=== PATIENT | female | born 1955 | race Caucasian/White ===

== ENCOUNTER 2025-07-19 20:06 | Inpatient (IN) | payer MEDICARE, SELFPAY ==
[2025-07-19] VITALS (11 sets, daily range): BP systolic 138–175; BP diastolic 67–82; PULSE 77–89; RESP 16–27; TEMP 36.6; O2SAT 91–97; BMI 38.2
--- NOTE | 2025-07-19 20:12 | ED.ABDPAIN ---
HPI - Abdominal Pain General Chief Complaint: Abdominal Pain Stated Complaint: Poss diverticulitis flare up, pain and vomiting Time Seen by Provider: 07/19/25 20:12 History of Present Illness HPI narrative: 69-year-old female patient with a history of hypothyroidism and previous diverticulitis who complains of worsening left lower quadrant pain over 3 days with no fever or chills. No diarrhea or constipation. She had 1 episode of nausea and vomiting on the way to the hospital. Appetite is down. This feels like symptoms she had before with diverticulitis. Related Data Allergies Allergy/AdvReac Type Severity Reaction Status Date / Time No Known Drug Allergies Allergy Verified 07/19/25 20:12 Review of Systems Review of Systems ROS Unobtainable: All systems reviewed & are unremarkable except as noted in HPI and below Gastrointestinal Gastrointestinal: Reports as per HPI Patient History Social History Smoking Status: Never smoker Exam Narrative Exam Narrative: General: Alert and conversant. ibll-ik-cexyojco distress. Appears well nourished and well hydrated Lungs: Clear to auscultation with good air movement. No wheezing, rales or rhonchi. No respiratory distress Cardiac: Regular rate and rhythm with no appreciable murmur or gallop Abdomen: Soft, . Kdjy-as-dteemike left lower quadrant tenderness with no rebound or guarding. with no distention or masses. Normal bowel sounds. Musculoskeletal: Exam of the extremities, axial spine and ribcage reveals no deformity, bony tenderness or swelling. Range of motion intact Neuro: Alert and oriented. Cranial nerves, motor, sensory and cerebellar all grossly intact. No focal deficit Skin: Warm and normal color. No rashes Psychological: Normal affect and interaction. No evidence of delusion or psychosis. Normal mood. Initial Vital Signs Initial Vital Signs: Vital Signs Temperature 97.9 F 07/19/25 20:10 Pulse Rate 89 07/19/25 20:10 Respiratory Rate 17 07/19/25 20:10 Blood Pressure 175/82 H 07/19/25 20:10 Pulse Oximetry 95 07/19/25 20:10 Oxygen Delivery Method Room Air 07/19/25 20:10 Course Orders Ordered: ED Orders 07/19/25 20:23 Complete Blood Count AUTO DIFF Stat Comprehensive Metabolic Panel Stat Lipase Stat 07/19/25 21:46 CT abdomen pelvis w con Stat 07/20/25 06:00 Basic Metabolic Panel DAILY Complete Blood Count AUTO DIFF DAILY Acetaminophen (Acetaminophen 325 Mg Tablet) 650 mg PO Q6H PRN PRN Reason: Fever/Mild Pain (1-3) Hydrocodone Bitart/Acetaminophen (Hydrocodone/Acet 5/325 Tablet) 1 tab PO Q4H PRN PRN Reason: Pain, Moderate (4-6) Heparin Sodium (Porcine) (Heparin 5,000 Unit/Ml Vial) 5,000 unit SUBCUT BID HAKEEM Sodium Chloride (Normal Saline 0.45%) 1,000 mls @ 100 mls/hr IV CONT HAKEEM Piperacillin Sod/Tazobactam (Sod 3.375 gm/ Sodium Chloride) 100 mls @ 25 mls/hr IV Q8H HAKEEM Morphine Sulfate (Morphine 4 Mg/Ml Inj) 3 mg IV Q2HR PRN PRN Reason: Pain, Severe (7-10) Naloxone HCl (Naloxone 0.4 Mg/Ml Vial) 0.2 mg IV Q2MIN PRN PRN Reason: Opiate Reversal Ondansetron HCl (Ondansetron 4 Mg/2 Ml Inj) 4 mg IV Q8HR PRN PRN Reason: Nausea And Vomiting Discontinued Medications Metronidazole (Flagyl) 500 mg in 100 mls @ 100 mls/hr IV NOW ONE Stop: 07/20/25 00:15 Last Admin: 07/20/25 00:16 Dose: 100 mls/hr Documented By: JOSE Ceftriaxone Sodium 2,000 mg/ (Sodium Chloride) 100 mls @ 200 mls/hr IV NOW ONE Stop: 07/19/25 23:17 Last Infusion: 07/20/25 00:38 Dose: Infused Documented By: Admin: 07/19/25 23:50 Dose: 200 mls/hr Documented By: CASSIE Piperacillin Sod/Tazobactam (Sod 3.375 gm/ Sodium Chloride) 100 mls @ 25 mls/hr IV Q8H [facility] Last Admin: 07/20/25 00:37 Dose: Not Given Documented By: CASSIE Piperacillin Sod/Tazobactam (Sod 3.375 gm/ Sodium Chloride) 100 mls @ 200 mls/hr IV NOW ONE Stop: 07/20/25 00:14 Morphine Sulfate (Morphine 4 Mg/Ml Inj) 4 mg IV NOW ONE Stop: 07/19/25 20:24 Last Admin: 07/19/25 20:32 Dose: 4 mg Documented By: ROSCOE Ondansetron HCl (Ondansetron 4 Mg/2 Ml Inj) 4 mg IV NOW ONE Stop: 07/19/25 20:24 Last Admin: 07/19/25 20:32 Dose: 4 mg Documented By: All Vital Signs Vital signs: Vital Signs - 8 hr 07/19/25 20:10 07/19/25 20:22 07/19/25 20:24 Temperature 97.9 F Pulse Rate 89 86 82 Respiratory Rate 17 20 18 Blood Pressure 175/82 H Pulse Oximetry 95 95 Oxygen Delivery Method Room Air 07/19/25 20:24 07/19/25 20:30 07/19/25 20:30 Temperature Pulse Rate 80 Respiratory Rate 16 Blood Pressure 139/70 143/69 H Pulse Oximetry 95 Oxygen Delivery Method Room Air 07/19/25 21:00 07/19/25 21:00 Temperature Pulse Rate 79 Respiratory Rate 27 H Blood Pressure 158/79 H Pulse Oximetry 93 Oxygen Delivery Method MDM - Abdominal Pain Lab Data Attestation: I reviewed the patient's lab results. Lab results narrative: WBCs 12.5 with H and H stable. CMP unremarkable 07/19/25 20:23 07/19/25 20:23 Labs: Lab Results 07/19/25 07/19/25 Range/Units 20:23 23:43 WBC 12.5 H (4.5-11.0) X10^3/uL RBC 4.98 (4.0-5.2) X10^6/uL Hgb 15.2 (12.0-16.0) g/dL Hct 45.0 (36-46) % MCV 90.3 (80-100) fL MCH 30.5 (26-34) PG MCHC 33.8 (30-36) % RDW 13.9 (11.6-14.8) % Plt Count 310 (150-400) X10^3/uL Neut % (Auto) 86.9 H (50-75) % Lymph % (Auto) 7.4 L (25-40) % [place] % (Auto) 4.8 (3-14) % Eos % (Auto) 0.2 L (2-4) % Baso % (Auto) 0.7 (0-2) % Neut # (Auto) 51233 H (1975-2701) /uL Lymph # (Auto) 900 L (4177-8149) /uL [place] # (Auto) 600 (0-900) /uL Eos # (Auto) 0 (0-450) /uL Baso # (Auto) 100 (0-100) /uL Sodium 138 (137-145) mmol/L Potassium 3.7 (3.4-5.1) mmol/L Chloride 103 (98-107) mmol/L Carbon Dioxide 26 (22-32) mmol/L BUN 13 (7-17) mg/dL Creatinine 0.53 (0.52-1.04) mg/dL Estimated GFR > 60 (>60) mL/min BUN/Creatinine Ratio 24.5 H (6-22) Glucose 132 H (70-99) mg/dL Calcium 8.8 (8.4-10.2) mg/dL Total Bilirubin 1.0 (0.2-1.3) mg/dL AST 25 (14-36) IU/L ALT 31 (<35) IU/L Alkaline Phosphatase 66 (38-126) U/L Total Protein 8.0 (6.3-8.2) g/dL Albumin 4.6 (3.5-5.0) g/dL Globulin 3.4 (1.7-4.1) g/dL Albumin/Globulin Ratio 1.4 (1.0-2.8) Lipase 53 (23-300) U/L Urine RBC None seen (0-5/HPF) Urine WBC None seen (0-5/HPF) Ur Squamous Epith Cells 0-1 /hpf (0-5/HPF) Urine Bacteria None seen (None) Ur Culture Indicated? Cult not indicated Vol Urine Centrifuged 10ml (spun) Imaging Data CT scan - abdomen/pelvis: Radiologist's Impression: IMPRESSION: Acute diverticulitis with findings concerning for possible microperforation in the left lower quadrant with surrounding fat edema. No organized, drainable abscess. [facility] Narrative Medical decision making narrative: CT scan reveals diverticulitis with findings concerning for microperforation. IV antibiotics started with ceftriaxone and metronidazole. We will discuss with hospitalist and possibly surgeon for admission. 23:30 I discussed the patient's care with Dr. Cervantes, hospitalist who agrees to admit her for diverticulitis with microperforation. He asked that I inform the covering general surgeon. Patient has recurrence of diverticulitis but now has microperforation requiring IV antibiotics and inpatient monitoring. Otherwise she is doing well and has improved with IV fluids and pain medication. Antibiotic started as above. 23:35 I discussed the patient's care with Dr. Waterman, general surgery who will consult on the patient in the morning Discharge Plan Departure Patient Disposition: Admitted As Inpatient Clinical Impression: Diverticulitis, Bowel perforation Admit Date/Time: 07/19/25 23:44 Admit Provider: Manny Cervantes
[2025-07-19 20:32] LABS: Add Manual Diff / Slide Review NO; Hematocrit 45.0 % (36-46); Hemoglobin 15.2 g/dL (12.0-16.0); Lymphocytes Absolute Auto 900 /uL (1100-4500); Mean Corpuscular HGB Conc 33.8 % (30-36); Mean Corpuscular Hemoglobin 30.5 PG (26-34); Mean Corpuscular Volume 90.3 fL (80-100); Platelet Count 310 X10^3/uL (150-400)
[2025-07-19] MEDS: ONDANSETRON 4 MG/2 ML INJ IV (20:32)
[2025-07-19] MEDS: MORPHINE 4 MG/ML INJ IV (20:32)
[2025-07-19 20:43] LABS: Alanine Aminotransferase 31 IU/L (<35); Albumin 4.6 g/dL (3.5-5.0); Albumin Globulin Ratio 1.4 (1.0-2.8); Alkaline Phosphatase 66 U/L (38-126); Blood Urea Nitrogen 13 mg/dL (7-17); Calcium 8.8 mg/dL (8.4-10.2); Carbon Dioxide 26 mmol/L (22-32); Chloride 103 mmol/L (98-107); Estimated Glomerular Filt Rate > 60 mL/min (>60); Globulin 3.4 g/dL (1.7-4.1); Glucose 132 mg/dL (70-99); HEMOLYSIS < 15 (0-50); Lipase 53 U/L (23-300); Potassium 3.7 mmol/L (3.4-5.1); Sodium 138 mmol/L (137-145); Total Protein 8.0 g/dL (6.3-8.2)
--- NOTE | 2025-07-19 21:46 | DI.CT.S_ITS ---
PROCEDURE: CT ABDOMEN PELVIS W CON INDICATIONS: left lower quadrant pain with leukocytosis. Rule out perfo TECHNIQUE: After the administration of intravenous contrast, axial sections acquired from the lung bases to the pubic symphysis. Coronal and sagittal reformats were performed. For radiation dose reduction, the following was used: automated exposure control, adjustment of mA and/or kV according to patient size. COMPARISON: None. FINDINGS: Image quality: Diagnostic. Lower Chest: Small hiatal hernia. ABDOMEN: Liver: Hepatic steatosis. No solid mass. Gallbladder: Post cholecystectomy. Biliary ducts: No biliary dilation. Pancreas: No ductal dilation. Spleen: Size is within normal limits. Adrenal Glands: No adrenal nodules. Kidneys and Ureters: No hydronephrosis. No solid mass. No complex renal cystic lesion which requires follow up. Small left peripelvic cysts. Stomach and Bowel and peritoneum: Diverticulosis coli with pericolonic inflammation in the inferior left pericolic gutter and left pelvic inlet with non organized adjacent fat stranding and complex attenuating fluid. No peripherally enhancing abscess. No free air. Ventral Wall: No significant ventral hernia. Small fat containing periumbilical hernia. Abdominal Nodes: No retroperitoneal or mesenteric adenopathy by size criteria. Vessels: Aorta and inferior vena cava are normal in size. PELVIS: Pelvic Organs: Unremarkable. Bladder: No bladder wall thickening, accounting for underdistention. Pelvic Nodes: No enlarged lymph nodes. Miscellaneous: No inguinal hernias are seen. Bones: No aggressive osseous abnormality. Severe degenerative disc disease at L4-5 and L5-S1. IMPRESSION: Acute diverticulitis with findings concerning for possible microperforation in the left lower quadrant with surrounding fat edema. No organized, drainable abscess. Dictated by: Arvin Ann M.D. on 07/19/2025 at 22:15 Approved by: Arvin Ann M.D. on 07/19/2025 at 22:19
[2025-07-19] MEDS: cefTRIAXone 2,000 MG in SODIUM CHLORIDE 0.9% 100 ML 200 MG IV (23:50)
[2025-07-20] VITALS: BP 147/73; PULSE 90; RESP 20; O2SAT 94
[2025-07-20] MEDS: metroNIDAZOLE 500 MG/100 ML PIGGYBACK 100 MG IV ×3 (00:16→20:11)
[2025-07-20 00:22] LABS: Culture Indicated Urine Cult Not Indicated
[2025-07-20 00:30] VITALS: BP 132/64; PULSE 88; RESP 24; O2SAT 91
[2025-07-20 00:33] VITALS: BMI 38.2
[2025-07-20] MEDS: SODIUM CHLORIDE 0.45% 1,000 ML 100 ML IV ×2 (01:28→12:54)
[2025-07-20 01:29] VITALS: BP 122/67; PULSE 89; RESP 18; TEMP 36.7; O2SAT 94
[2025-07-20] MEDS: PIPERACILLIN/TAZO 4.5 GM in SODIUM CHLORIDE 0.9% 100 ML IV (02:25)
[2025-07-20] MEDS: MORPHINE 4 MG/ML INJ 3 MG IV (02:30)
[2025-07-20] MEDS: PIPERACILLIN/TAZO 3.375 GM in SODIUM CHLORIDE 0.9% 100 ML IV (05:36)
[2025-07-20 05:45] LABS: Add Manual Diff / Slide Review NO; Hematocrit 38.9 % (36-46); Hemoglobin 13.3 g/dL (12.0-16.0); Lymphocytes Absolute Auto 1300 /uL (1100-4500); Mean Corpuscular HGB Conc 34.1 % (30-36); Mean Corpuscular Hemoglobin 30.7 PG (26-34); Mean Corpuscular Volume 90.0 fL (80-100); Platelet Count 252 X10^3/uL (150-400)
[2025-07-20 06:03] LABS: Blood Urea Nitrogen 11 mg/dL (7-17); Calcium 7.9 mg/dL (8.4-10.2); Carbon Dioxide 26 mmol/L (22-32); Chloride 104 mmol/L (98-107); Estimated Glomerular Filt Rate > 60 mL/min (>60); Glucose 103 mg/dL (70-99); HEMOLYSIS < 15 (0-50); Potassium 3.4 mmol/L (3.4-5.1); Sodium 136 mmol/L (137-145)
--- NOTE | 2025-07-20 06:14 | PM.HP.1 ---
History of Present Illness History of Present Illness Date Patient Seen: 07/20/25 Time Patient Seen: 00:12 Chief complaint: Poss diverticulitis flare up, pain and vomiting Narrative: 69-year-old female with past medical history of hypothyroidism and previous diverticulitis presents with left lower quadrant abdominal pain. Per the patient report, over the last 3 days, the patient started to have increasing sharp and lower quadrant pain. The patient however denies any diarrhea, fever, chills constipation, GI bleed or chest pain. The patient does admit to have some mild nausea and vomiting today. Due to pain and nausea patient appetite has been decreased. In the emergency room, the patient was hemodynamically stable. Lab shows WBC of [address] abdomen showing signs of diverticulitis with microperforation. General surgeon was consulted and IV ceftriaxone and metronidazole given. IV fluid also given with pain medication. [facility] Social History household members: spouse Smoking Status: Never smoker Meds Home Medications and Allergies Home Medications ?Medication ?Instructions ?Recorded ?Confirmed ?Type bupropion HCl 300 mg 24 hr tablet, 300 mg PO DAILY 07/20/25 07/20/25 History extended release estradiol 0.5 mg tablet 0.5 mg PO .every other day 07/20/25 07/20/25 History fluoxetine 10 mg capsule 10 mg PO DAILY 07/20/25 07/20/25 History levothyroxine 112 mcg tablet 112 mcg PO DAILY 07/20/25 07/20/25 History liothyronine 5 mcg tablet 5 mcg PO DAILY 07/20/25 07/20/25 History omeprazole 20 mg capsule,delayed 20 mg PO BID 07/20/25 07/20/25 History release Allergies Allergy/AdvReac Type Severity Reaction Status Date / Time No Known Drug Allergies Allergy Verified 07/19/25 20:12 Exam Vital Signs (past 8 hours): - 07/19/25 22:30 07/19/25 22:30 07/19/25 23:00 Temperature Pulse Rate 79 Respiratory Rate 20 Blood Pressure 151/74 H 148/74 H Pulse Oximetry 94 Oxygen Delivery Method Oxygen Flow Rate 07/19/25 23:00 07/19/25 23:30 07/19/25 23:30 Temperature Pulse Rate 77 82 Respiratory Rate 27 H 26 H Blood Pressure 139/67 Pulse Oximetry 92 93 Oxygen Delivery Method Oxygen Flow Rate 07/19/25 23:48 07/19/25 23:48 07/20/25 00:00 Temperature Pulse Rate 89 90 Respiratory Rate 22 20 Blood Pressure 143/82 H Pulse Oximetry 95 94 Oxygen Delivery Method Oxygen Flow Rate 07/20/25 00:00 07/20/25 00:30 07/20/25 00:30 Temperature Pulse Rate 88 Respiratory Rate 24 Blood Pressure 147/73 H 132/64 Pulse Oximetry 91 Oxygen Delivery Method Oxygen Flow Rate 07/20/25 00:33 07/20/25 01:29 Temperature 98.0 F Pulse Rate 89 Respiratory Rate 18 Blood Pressure 122/67 Pulse Oximetry 94 Oxygen Delivery Method Room Air Oxygen Flow Rate 0 Oxygen Delivery Method Room Air Oxygen Flow Rate 0 Narrative Exam Narrative: Physical Exam: GENERAL: The patient is not in any acute distressed. Awake and alert. HEENT: Nonicteric sclerae, PERRLA, EOMI. Oropharynx clear. Moist mucous membranes. Conjunctivae appear well perfused. HEART: Regular rate and rhythm without murmurs. No lower extremities edema. LUNGS: Clear to auscultation bilaterally. No wheezing, crackles or rhonchi ABDOMEN: RLQ abdominal tenderess without rebound Soft, positive bowel sounds, SKIN: No rash, no excessive bruising, petechiae, or purpura. NEUROLOGIC: AxO x 3. Cranial nerves II-XII intact without motor/sensory deficit. Objective Labs 07/20/25 05:10 07/20/25 05:10 Labs: Laboratory Results - last 24 hr 07/19/25 07/19/25 07/20/25 20:23 23:43 05:10 WBC 12.5 H 6.6 RBC 4.98 4.32 Hgb 15.2 13.3 Hct 45.0 38.9 MCV 90.3 90.0 MCH 30.5 30.7 MCHC 33.8 34.1 RDW 13.9 13.8 Plt Count 310 252 Neut % (Auto) 86.9 H 71.8 Lymph % (Auto) 7.4 L 19.6 L [place] % (Auto) 4.8 7.4 Eos % (Auto) 0.2 L 1.0 L Baso % (Auto) 0.7 0.2 Neut # (Auto) 25917 H 4800 Lymph # (Auto) 900 L 1300 [place] # (Auto) 600 500 Eos # (Auto) 0 100 Baso # (Auto) 100 0 Sodium 138 136 L Potassium 3.7 3.4 Chloride 103 104 Carbon Dioxide 26 26 BUN 13 11 Creatinine 0.53 0.58 Estimated GFR > 60 > 60 BUN/Creatinine Ratio 24.5 H 19.0 Glucose 132 H 103 H Calcium 8.8 7.9 L Total Bilirubin 1.0 AST 25 ALT 31 Alkaline Phosphatase 66 Total Protein 8.0 Albumin 4.6 Globulin 3.4 Albumin/Globulin Ratio 1.4 Lipase 53 Urine RBC None seen Urine WBC None seen Ur Squamous Epith Cells 0-1 /hpf Urine Bacteria None seen Ur Culture Indicated? Cult not indicated Vol Urine Centrifuged 10ml (spun) Assessment & Plan Assessment & Plan narrative: Acute diverticulitis with microperforation. Admit the patient to medical inpatient. Clear liquid diet. IV fluid. Will switch to IV Zosyn. Of note general surgery consulted appreciate further input and management. Once medically stable. For diverticulitis patient will likely need to have repeat colonoscopy for cancer screening in a few months. Hypothyroidism. Resume home Synthroid once medication is confirmed. DVT prophylaxis heparin subcu. CODE STATUS full code. Disposition likely home in 2 days - As the provider of this telehealth evaluation, requested by the patient's evaluating physician, I attest that I introduced myself to the patient, provided my credentials and determined that telemedicine via a real-time, 2 way interactive audio and video platform is an appropriate and effective means of providing this service. - I reviewed the patient's chart and had a discussion with the member of the patient's treatment team. - The patient and I mutually agreed with continuation of this evaluation via telemedicine. The patient consented for the telemedicine evaluation. - This virtual encounter was taken place from [place] by Dr. Manny Cervantes. The patient was evaluated at [facility]. The encounter was approximately 35 minutes. The nurse was present during the entire time of the encounter and was able to assists with exam/stethoscope. Time-Based Coding :: [TOTAL MINUTES] spent with patient and on the chart (including review of chart, obtaining history, exam, reviewing outside data, placing orders, documenting exam and treatment plan, and counseling patient) on [DATE].
[2025-07-20 08:15] VITALS: BP 117/66; PULSE 67; RESP 16; TEMP 36.7; O2SAT 95
[2025-07-20] MEDS: LEVOTHYROXINE 112 MCG TABLET PO (09:33)
[2025-07-20] MEDS: LIOTHYRONINE 5 MCG TABLET PO (09:33)
[2025-07-20] MEDS: FLUoxetine 10 MG CAPSULE PO (09:33)
[2025-07-20] MEDS: HEPARIN 5,000 UNIT/ML VIAL 5000 UNIT SUBCUT ×2 (09:34→20:11)
[2025-07-20] MEDS: POTASSIUM CHLORIDE IN WATER 10 MEQ/100 ML PIGGYBACK 100 MEQ IV ×2 (09:44→11:21)
--- NOTE | 2025-07-20 10:37 | CM.DANOTE ---
Patient is a 69 yo female who was admitted INPT Status on 07/19/25 for Abd Pain. Pt has MCR for insurance and her PCP is Dr. Soler in [facility]. EMR was reviewed. Per MD, pt with hx of diverticulitis and admitted for acute diverticulitis with microperf. Currently on clear liquids and IV Abx and awaiting Surgeon Consult to determine conservative vs surgical intervention. SW met bedside with pt and explained role and she confirms she lives at home with spouse in [place], [place] and both are active and independent at baseline. Pt does not use DME to ambulate and she still drives. No hx of HH or SNF. Pt states they have a [place] on [address] (near [place]) and have a private boat for transportation [place] and they had been staying in their cabin when her abdominal pain developed. Spouse currently closing down their cabin and getting their dog as plan is to d/c back to their house in [place] at discharge. Pt preference is home and aware it could be another 1-2 days pending progress and spouse will transport her home. Pt states she has a son who lives in [place] with his family and two young kids and willing to fly up to assist if needed but pt has been able to ambulate and be independent in room at this time and does not feel that increased assist needed at d/c. Plan: SW to follow for Surgeon recommendations and progress for plan of home with spouse when stable and outpt f/u. COSME Alas Discharge Planning/Care Management CM Discharge Assessment Start: 07/20/25 00:33 Freq: Status: Active Protocol: Document 07/20/25 10:35 BF (Rec: 07/20/25 10:37 BF [id number]) Discharge Planning Assessment Assigned Discharge COSEM Mariscal [employer] Provider Dr. Soler in [facility] Insurance Medicare DPOA/Assigned spouse James Designee Name Contact Information [phone] Advance Directives? No Advance Directives No on File History Provided By Patient,Significant Other,Medical Record Has Patient been No admitted in last 30 days? Prior Living House Arrangements Household Members spouse Type of Drives own vehicle transporation used prior to admit Independent with ADL Yes 's Is patient alert and Yes oriented? Caregiver for No Another Barriers to No Discharge Discharge Plan Home Transportation Spouse to transport at d/c Arrangement Additional Comment Pending Surgeon Consult and recommendations Whiteboard Updated Yes in Patient Room with name and ext. # of Counsellors Review Status In Process Please Provide Date 07/20/25 Initial DC Assessment Was Performed Next Review Type Continued Stay Review
--- NOTE | 2025-07-20 11:37 | PC.NURSE ---
Addendum entered by Sharita Stevens RN 07/20/25 15:01: Pt resting at intervals T/O day. Med @ 1500 w/tylenol for H/A IVF continue Call light w/in reach, pt calls appropriately for needs. Continue w/plan of care. Original Note: Pt up ad amelie in room. IVF infusing as per orders. Receiving KCL riders x 2 as per orders. Med @ 0930 W/ oxycodone w/good relief. Call light w/in reach; pt calls appropriately for needs. Continue w/plan of care.
--- NOTE | 2025-07-20 11:39 | PM.CN.IH.1 ---
History of Present Illness Consult details Date Patient Seen: 07/20/25 Time Patient Seen: 11:39 Chief complaint: Poss diverticulitis flare up, pain and vomiting Reason for consult: Acute diverticulitis Requesting provider: Nazario Khan Narrative: 69yo F admitted through ED last night with acute diverticulitis. Fat stranding and fluid in LLQ/pelvis, question microperforation. Started on IV ceftriaxone/flagyl. WBC 12.5, NLR 11.7. Prior colonoscopy 5 years ago in [place] (lives in [place]) significant for polyps, told next colonoscopy in 5 years so she is due. Denies FH for colon cancer. H/O diverticulitis, 1-2 episodes per year. She endorses occasional constipation, diet related. Had daily BMs recently. Denies blood in stool. Afebrile. Meds Home Medications and Allergies Home Medications ?Medication ?Instructions ?Recorded ?Confirmed ?Type bupropion HCl 300 mg 24 hr tablet, 300 mg PO DAILY 07/20/25 07/20/25 History extended release estradiol 0.5 mg tablet 0.5 mg PO .every other day 07/20/25 07/20/25 History fluoxetine 10 mg capsule 10 mg PO DAILY 07/20/25 07/20/25 History levothyroxine 112 mcg tablet 112 mcg PO DAILY 07/20/25 07/20/25 History liothyronine 5 mcg tablet 5 mcg PO DAILY 07/20/25 07/20/25 History omeprazole 20 mg capsule,delayed 20 mg PO BID 07/20/25 07/20/25 History release Allergies Allergy/AdvReac Type Severity Reaction Status Date / Time No Known Drug Allergies Allergy Verified 07/19/25 20:12 Exam Vital Signs (past 8 hours): - 07/20/25 08:15 Temperature 98.0 F Pulse Rate 67 Respiratory Rate 16 Blood Pressure 117/66 Pulse Oximetry 95 Oxygen Delivery Method Room Air Oxygen Flow Rate 0 Narrative Exam Narrative: Const General: healthy appearing, comfortable and no acute distress Orientation: alert and oriented x3 HENMT Ears: hearing grossly normal bilaterally Eyes Visual Quan: normal visual quan by confrontation Conjunctivae: conjunctivae normal Sclera: sclerae normal EOM: EOM intact bilaterally Resp Effort & Inspection: normal respiratory effort and able to speak in complete sentences Cardio Rate: regular rate GI Palpation: soft, +focal tenderness in LLQ Extrem General: no pedal edema and no calf tenderness Objective Labs 07/20/25 05:10 07/20/25 05:10 Labs: Laboratory Results - last 24 hr 07/19/25 07/19/25 07/20/25 20:23 23:43 05:10 WBC 12.5 H 6.6 RBC 4.98 4.32 Hgb 15.2 13.3 Hct 45.0 38.9 MCV 90.3 90.0 MCH 30.5 30.7 MCHC 33.8 34.1 RDW 13.9 13.8 Plt Count 310 252 Neut % (Auto) 86.9 H 71.8 Lymph % (Auto) 7.4 L 19.6 L [place] % (Auto) 4.8 7.4 Eos % (Auto) 0.2 L 1.0 L Baso % (Auto) 0.7 0.2 Neut # (Auto) 79348 H 4800 Lymph # (Auto) 900 L 1300 [place] # (Auto) 600 500 Eos # (Auto) 0 100 Baso # (Auto) 100 0 Sodium 138 136 L Potassium 3.7 3.4 Chloride 103 104 Carbon Dioxide 26 26 BUN 13 11 Creatinine 0.53 0.58 Estimated GFR > 60 > 60 BUN/Creatinine Ratio 24.5 H 19.0 Glucose 132 H 103 H Calcium 8.8 7.9 L Total Bilirubin 1.0 AST 25 ALT 31 Alkaline Phosphatase 66 Total Protein 8.0 Albumin 4.6 Globulin 3.4 Albumin/Globulin Ratio 1.4 Lipase 53 Urine RBC None seen Urine WBC None seen Ur Squamous Epith Cells 0-1 /hpf Urine Bacteria None seen Ur Culture Indicated? Cult not indicated Vol Urine Centrifuged 10ml (spun) PFS Social History household members: spouse Tobacco & Substance Use Smoking Status: Never smoker Assessment & Plan Assessment and plan (1) Diverticulitis: Status: Acute Plan CT read questions microperforation, no free air, could be reactionary fluid. Agree with IV abx for 48 hours and switch to oral to complete 10 day course as outpatient. Watch for increasing symptoms or WBC. She will need colonoscopy after 8 weeks to reduce risk of perforation with acute inflammation. She desires to have this done in [place] [facility] where her last scope was done. I recommend she consult with a colorectal surgeon to discuss pros and cons of elective colon resection versus continuing medical management. Will follow. Time-Based Coding :: [TOTAL MINUTES] spent with patient and on the chart (including review of chart, obtaining history, exam, reviewing outside data, placing orders, documenting exam and treatment plan, and counseling patient) on [DATE]. PROFEE Charge Codes Inpatient or Observation consultation: 26004
--- NOTE | 2025-07-20 17:31 | PM.PN.1 ---
Subjective Subjective Interval history: 69-year-old female with hypothyroidism, diverticulosis, and previous diverticulitis who was admitted with recurrent diverticulitis with microperforation. Patient reports she is feeling quite a lot better today. She is having less pain overall. She notes that her symptoms had started a couple of days ago. However, she was at her [place] with other family members and she tried to tough it out. She had some old antibiotics from a prior episode of diverticulitis that she had completed so she tried taking those. Her symptoms worsened last evening and she subsequently came into the emergency department. She was found to have a microperforation and was admitted for further care. She was seen by General surgery with recommendations for 48 hours of IV antibiotics, follow-up with her primary GI or surgery physician for colonoscopy in approximately 8 weeks, and recommendation for her to see a colorectal specialist for consideration of colon resection for definitive treatment of her recurring diverticulitis. Exam Vital Signs (past 8 hours): Oxygen Delivery Method Room Air Oxygen Flow Rate 0 Narrative Exam Narrative: GEN: Very pleasant middle-aged female, Alert and oriented x 3, NAD HEENT:NC, Face symmetric CHEST: Respiratory excursions symmetric, CTAB CV: RRR, no M/R/G ABD: Soft, moderate tenderness to palpation in the left lower quadrant/ND, BT present in all 4 quadrants, no organomegaly or masses EXTR: warm, well perfused, no C/C/E SKIN: warm and dry, no rash NEURO: Alert and oriented x 3, nonfocal Objective Labs 07/20/25 05:10 07/20/25 05:10 Labs: Laboratory Results - last 24 hr 07/19/25 07/19/25 07/20/25 20:23 23:43 05:10 WBC 12.5 H 6.6 RBC 4.98 4.32 Hgb 15.2 13.3 Hct 45.0 38.9 MCV 90.3 90.0 MCH 30.5 30.7 MCHC 33.8 34.1 RDW 13.9 13.8 Plt Count 310 252 Neut % (Auto) 86.9 H 71.8 Lymph % (Auto) 7.4 L 19.6 L [place] % (Auto) 4.8 7.4 Eos % (Auto) 0.2 L 1.0 L Baso % (Auto) 0.7 0.2 Neut # (Auto) 95161 H 4800 Lymph # (Auto) 900 L 1300 [place] # (Auto) 600 500 Eos # (Auto) 0 100 Baso # (Auto) 100 0 Sodium 138 136 L Potassium 3.7 3.4 Chloride 103 104 Carbon Dioxide 26 26 BUN 13 11 Creatinine 0.53 0.58 Estimated GFR > 60 > 60 BUN/Creatinine Ratio 24.5 H 19.0 Glucose 132 H 103 H Calcium 8.8 7.9 L Total Bilirubin 1.0 AST 25 ALT 31 Alkaline Phosphatase 66 Total Protein 8.0 Albumin 4.6 Globulin 3.4 Albumin/Globulin Ratio 1.4 Lipase 53 Urine RBC None seen Urine WBC None seen Ur Squamous Epith Cells 0-1 /hpf Urine Bacteria None seen Ur Culture Indicated? Cult not indicated Vol Urine Centrifuged 10ml (spun) PFSH Social History household members: spouse Smoking Status: Never smoker Assessment & Plan Assessment & Plan narrative: 1. Left lower quadrant diverticulitis with microperforation Appreciate consult per Dr. Waterman, general surgery. Continue Rocephin and Flagyl. Plan to continue through tomorrow and likely give her Rocephin dose in the early afternoon tomorrow so she can discharge home. Anticipate she will go home with oral Keflex and Flagyl. She is already significantly improved from admission. Discussed initiating a low residue diet as she advances her diet and when her current bout of diverticulitis is resolved, to consider the addition of Benefiber daily along with MiraLax to keep her bowels moving consistently. 2. Leukocytosis White count was 12.5 on admission. It is normalized at 6.6 today. 3. Hyponatremia Mild at 136. Will recheck in the morning. 4. Hypothyroidism Continue thyroid replacement 5. Class 2 obesity BMI is 38.3. Would benefit from weight reduction Code status Full Prophylaxis On heparin Disposition Anticipate discharge home tomorrow after she receives her afternoon dose of IV antibiotics Time-Based Coding :: [TOTAL MINUTES] spent with patient and on the chart (including review of chart, obtaining history, exam, reviewing outside data, placing orders, documenting exam and treatment plan, and counseling patient) on [DATE].
[2025-07-20] MEDS: ONDANSETRON 4 MG/2 ML INJ IV (17:45)
[2025-07-20 20:10] VITALS: BP 137/71; PULSE 66; RESP 17; TEMP 36.7; O2SAT 94
[2025-07-20] MEDS: PROCHLORPERAZINE 10 MG/2 ML VIAL 5 MG IV (20:10)
[2025-07-20] MEDS: ACETAMINOPHEN 325 MG TABLET 650 MG PO (20:43)
[2025-07-20] MEDS: cefTRIAXone 2,000 MG in SODIUM CHLORIDE 0.9% 100 ML 200 MG IV (22:20)
[2025-07-21] MEDS: metroNIDAZOLE 500 MG/100 ML PIGGYBACK 100 MG IV ×3 (02:33→14:58)
[2025-07-21 05:49] LABS: Blood Urea Nitrogen 7 mg/dL (7-17); Calcium 7.9 mg/dL (8.4-10.2); Carbon Dioxide 26 mmol/L (22-32); Chloride 106 mmol/L (98-107); Estimated Glomerular Filt Rate > 60 mL/min (>60); Glucose 88 mg/dL (70-99); HEMOLYSIS < 15 (0-50); Potassium 3.2 mmol/L (3.4-5.1); Sodium 139 mmol/L (137-145)
[2025-07-21] MEDS: LEVOTHYROXINE 112 MCG TABLET PO (06:43)
--- NOTE | 2025-07-21 06:48 | P.PN_ITS ---
Subjective Subjective Date Patient Seen: 07/21/25 Time Patient Seen: 06:48 Interval history: Feeling much better, decreased abdominal pain Denies n/v Tolerating clear liquids Exam Vital Signs (past 8 hours): Oxygen Delivery Method Room Air Oxygen Flow Rate 0 GI Other: ABD: soft, less tender in LLQ, non-peritoneal exam Objective Labs 07/20/25 05:10 07/21/25 04:46 Labs: Laboratory Results - last 24 hr 07/21/25 04:46 Sodium 139 Potassium 3.2 L Chloride 106 Carbon Dioxide 26 BUN 7 Creatinine 0.51 L Estimated GFR > 60 BUN/Creatinine Ratio 13.7 Glucose 88 Calcium 7.9 L PFSH Social History household members: spouse Smoking Status: Never smoker Assessment & Plan Assessment and plan (1) Diverticulitis: Status: Acute Plan Clinically improved on IV Zosyn/Flagyl WBC decreased 12 to 6, NLR down to 3 Afebrile Recommend switch to po abx after 48 hours IV abx, for 10 day course Recommend colonoscopy after 8 weeks at her preferred GI clinic in [place] Recommend consult with colorectal surgeon to discuss elective colon resection pros and cons given repetitive nature of her diverticulitis Time-Based Coding :: [TOTAL MINUTES] spent with patient and on the chart (including review of chart, obtaining history, exam, reviewing outside data, placing orders, documenting exam and treatment plan, and counseling patient) on [DATE]. PROFEE Portuguese Tutor Document charge(s): Yes Charge Codes Subsequent inpatient/observation care: 12072
[2025-07-21 08:54] VITALS: BP 131/69; PULSE 79; RESP 17; TEMP 36.8; O2SAT 96
[2025-07-21] MEDS: LIOTHYRONINE 5 MCG TABLET PO (09:13)
[2025-07-21] MEDS: FLUoxetine 10 MG CAPSULE PO (09:13)
--- NOTE | 2025-07-21 10:56 | DIET.CONS ---
Dietary Consultation Note Admission Date: 07/19/2025 23:44 Assessment: 69 y F admitted for diverticulitis. Dietitian screened for hospitalist requesting fiber educ for pt. Met with pt at bedside. Interested in learning more about nutrition management for diverticulosis/diverticulitis. Ht: 160.02 cm Wt: 97.976 kg BMI: 38.2 Last BM: 07/19/25 (07/20/25 00:33) MNA: 11 Juan Score: 22 Diet: 07/19/25 Breakfast Clear Liquid Diet Diet Modifications: 07/19/25 20:23 NPO Diet Diet Modifications: NPO Type: NPO except for Meds Nutrition Percent Meal Consumed 25% 07/20/25 18:00 Labs: RBC 4.32 X10^6/uL (4.0-5.2) 07/20/25 05:10 Hgb 13.3 g/dL (12.0-16.0) 07/20/25 05:10 Hct 38.9 % (36-46) 07/20/25 05:10 Creatinine 0.51 mg/dL (0.52-1.04) L 07/21/25 04:46 Nutrition Diagnosis: Altered GI function r/t altercations in GI tract structure/function aeb diverticulitis Interventions: Provided educ and handouts on low fiber when in flare, increasing fiber when out of flare, and good fibrous foods to include along with food list and amount of fiber in each. Educ on adequate hydration, slowly increasing, and general gut health. EER: 21-28 g fiber daily Monitoring/Evaluations: f/u prn, pt to d/c today Electronically Signed by: Marylou Donato 07/21/25 10:57 Clinical Dietitian [address] [id number]
[2025-07-21] MEDS: cefTRIAXone 2,000 MG in SODIUM CHLORIDE 0.9% 100 ML 200 MG IV (10:58)
[2025-07-21] MEDS: POTASSIUM CHLORIDE 20 MEQ TAB 40 MEQ PO (10:59)
[2025-07-21] MEDS: SODIUM CHLORIDE 0.45% 1,000 ML 100 ML IV ×2 (10:59)
[2025-07-21] MEDS: ACETAMINOPHEN 325 MG TABLET 650 MG PO (11:04)
--- NOTE | 2025-07-21 11:14 | P.DS_ITS ---
History of Present Illness History of Present Illness Date Patient Seen: 07/21/25 Chief complaint: Poss diverticulitis flare up, pain and vomiting Narrative: Chief complaint: Abdominal pain secondary to diverticulitis with microperforation History of present illness: Hospital course: 06/19: Patient reports she is feeling quite a lot better today. She is having less pain overall. She notes that her symptoms had started a couple of days ago. However, she was at her [place] with other family members and she tried to tough it out. She had some old antibiotics from a prior episode of diverticulitis that she had completed so she tried taking those. Her symptoms worsened last evening and she subsequently came into the emergency department. She was found to have a microperforation and was admitted for further care. She was seen by General surgery with recommendations for 48 hours of IV antibiotics, follow-up with her primary GI or surgery physician for colonoscopy in approximately 8 weeks, and recommendation for her to see a colorectal specialist for consideration of colon resection for definitive treatment of her recurring diverticulitis. 06/20: Advanced to soft diet today has had 48 hours of IV antibiotics and we will be converted to oral antibiotics and follow up with her primary care colonoscopy and with a colorectal surgeon for possible colectomy Review of systems: No nausea vomiting diarrhea Chest pain palpitations Fever or chills Physical exam: No acute distress HEENT unremarkable No labored respirations No abdominal tenderness Assessment and plan: 1. Left lower quadrant diverticulitis with microperforation Appreciate consult per Dr. Waterman, general surgery. Continue Rocephin and Flagyl. Plan to continue through tomorrow and likely give her Rocephin dose in the early afternoon tomorrow so she can discharge home. Anticipate she will go home with oral Keflex and Flagyl. She is already significantly improved from admission. Discussed initiating a low residue diet as she advances her diet and when her current bout of diverticulitis is resolved, to consider the addition of Benefiber daily along with MiraLax to keep her bowels moving consistently. 2. Leukocytosis White count was 12.5 on admission. It is normalized at 6.6 today. 3. Hyponatremia Mild at 136. Will recheck in the morning. 4. Hypothyroidism Continue thyroid replacement 5. Class 2 obesity BMI is 38.3. Would benefit from weight reduction Code status Full Disposition: * Discharge to home * Low residue diet * Follow up with PCP * Follow up colonoscopy * Follow up with local colorectal surgeon Time based billing: * 35 minutes were involved in management of this patient including [id number] patient evaluation physical examination review of objective laboratory and imaging findings review of consultations prescriptions and discharge arrangements Discharge Providers Provider Date of admission: 07/19/25 23:44 Discharge Date: 07/21/25 Discharge provider: Dung Guzmán MD Exam Vital Signs (past 8 hours): - 07/21/25 08:54 Temperature 98.2 F Pulse Rate 79 Respiratory Rate 17 Blood Pressure 131/69 Pulse Oximetry 96 Oxygen Flow Rate 0 Oxygen Delivery Method Room Air Oxygen Flow Rate 0 Objective Labs 07/20/25 05:10 07/21/25 04:46 Labs: Laboratory Results - last 24 hr 07/21/25 04:46 Sodium 139 Potassium 3.2 L Chloride 106 Carbon Dioxide 26 BUN 7 Creatinine 0.51 L Estimated GFR > 60 BUN/Creatinine Ratio 13.7 Glucose 88 Calcium 7.9 L PFSH Social History household members: spouse Smoking Status: Never smoker Discharge Plan Discharge Plan Patient Disposition: Home Provider Discharge Comment: You were admitted with recurrent diverticulitis. Take the antibiotics you are prescribed until they are gone. Advanced her diet as you tolerate to a low residue diet. Continue that until your diverticulitis symptoms fully resolved. Once her symptoms have fully resolved, resume a normal diet. Add Benefiber and daily MiraLax to manage your bowel habits. The goal is to have a formed bowel movement daily with the consistency of soft serve rather than a hard stool. You can adjust MiraLax dosing up to 3 times a day if needed to achieve that. Return to the ED: Increased shortness of breath/chest pain. Inability to hold down food/fluids/medications. Fevers/chills. Worsening abdominal pain Discharge orders & Medications Prescriptions: New cefdinir 300 mg capsule 300 mg PO BID Qty: 14 0RF metronidazole 500 mg tablet 500 mg PO Q8H Qty: 20 0RF Continued liothyronine 5 mcg tablet 5 mcg PO DAILY fluoxetine 10 mg capsule 10 mg PO DAILY omeprazole 20 mg capsule,delayed release(DR/EC) 20 mg PO BID levothyroxine 112 mcg tablet 112 mcg PO DAILY bupropion HCl 300 mg tablet extended release 24 hr 300 mg PO DAILY estradiol 0.5 mg tablet 0.5 mg PO .every other day Visit Report/Discharge Packet Instructions: Low-Fiber/Low-Residue Diet Stand Alone Forms: Patient Portal/API, Stroke Signs & Symptoms
--- NOTE | 2025-07-21 14:04 | CM.DPC ---
DCP Discharge Home Per MD and Surgeon, pt improving and will switch to po meds for discharge after final dose of IV abx today and recommendation of outpt f/u with Surgeon in a few weeks for colonoscopy and potential for resection. [employer]ment Leader to meet bedside with pt to discuss food/diet recommendation for home to reduce risk of diverticulitis. Spouse plans to provide transport at d/c back to their home in [place]. [employer]
== END 2025-07-21 18:18 | disposition home or self-care (01) | DRG 392 ==
LOC: ED 23:38 → AC 23:44
PROVIDERS: Admitting Provider Internal Medicine; Emergency Provider Emergency Medicine; Referring Provider Emergency Medicine; Visit Provider Internal Medicine
DX: K57.20 Diverticulitis of large intestine with perforation and abscess without bleeding (principal); E87.1 Hypo-osmolality and hyponatremia; E03.9 Hypothyroidism, unspecified; E66.812 Obesity, class 2; D72.829 Elevated white blood cell count, unspecified; Z79.890 Hormone replacement therapy; Z68.38 Body mass index [BMI] 38.0-38.9, adult
CPT/HCPCS: 36415; 74177; 80048; 80053; 81003; 81015; 83690; 85025; 87086; 96365; 96367; 96368; 96375; 99284; J0696; J0780; J1644; J2272; J2405; J2543; J7050; Q9967